=== PATIENT | male | born 1995 | race African-American/Black ===

== ENCOUNTER 2017-06-05 12:42 | Emergency (ER) | payer OTHER, MEDICAID ==
[2017-06-05 12:48] VITALS: BP 128/80; PULSE 66; RESP 20; TEMP 97.5; O2SAT 100
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
== END 2017-06-05 14:15 | disposition home or self-care (01) ==
DX: S60.221A Contusion of right hand, initial encounter (principal); S63.91XA Sprain of unspecified part of right wrist and hand, initial encounter; F17.200 Nicotine dependence, unspecified, uncomplicated; V47.6XXA Car passenger injured in collision with fixed or stationary object in traffic accident, initial encounter; Y92.410 Unspecified street and highway as the place of occurrence of the external cause; Y99.8 Other external cause status